=== PATIENT | female | born 2000 | race Hispanic/Latino ===

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

== ENCOUNTER 2019-06-20 16:53 | Emergency (ER) | payer MEDICAID, SELFPAY ==
[2019-06-20 17:25] LABS: #Basophils 0.1 thou/uL (0.0-0.2); #Eosinphils 0.1 thou/uL (0.0-0.7); #Lymphocytes 2.1 thou/uL (1.20-3.40); #Monocytes 0.4 thou/uL (0.11-0.59); #Neutrophils 8.1 thou/uL (1.40-6.50); %Basophils 0.8 % (0.0-1.0); %Eosinophils 0.6 % (0.0-10.0); %Lymphocytes 19.7 % (28.0-48.0); %Monocytes 4.1 % (0.0-4.0); %Neutrophils 74.8 % (31.0-61.0); Hemoglobin 12.8 g/dL (12.0-16.0); Mean Corpuscular HGB CONC 33.8 g/dL (32.0-36.0); Mean Corpuscular Hemoglobin 29.5 pg (25.0-35.0); Mean Corpuscular Volume 87.4 fL (78.0-98.0); Mean Platelet Volume 10.8 fL (7.4-10.4); Platelet Count 175 thou/uL (130-400); RBC Distribution Width 11.5 % (11.5-14.5); Red Blood Cell (RBC) Count 4.33 mill/uL (4.00-5.20); White Blood Cell (WBC) Count 10.9 thou/uL (4.8-10.8)
[2019-06-20 17:43] LABS: Anion Gap 10 mmol/L (10-20); BUN (Urea Nitrogen) 5 mg/dL (8.4-21.0); Calc. Creatinine Clearance 0 mL/min (70-130); Carbon Dioxide 24 mmol/L (22-29); Chloride 104 mmol/L (98-107); Estimated GFR-MDRD Greater than 90; Glucose 114 mg/dL (70-105); Potassium 3.4 mmol/L (3.5-5.1); Sodium 135 mmol/L (136-145)
--- NOTE | 2019-06-20 18:22 | ULT ---
ULTRASOUND PELVIC ULTRASOUND TRANSVAGINAL DOPPLER DUPLEX: DATE: 06/20/2019 HISTORY: 18-year-old female with first trimester vaginal bleeding TECHNIQUE: Transabdominal transducer and endovaginal transducer used to visualize intrapelvic contents with miller scale, color-flow, and spectral analysis. FINDINGS: There is an intrauterine gestational sac containing a pole. [place]-rump length is 2.1 cm: 8 weeks 5 days gestational age. No heart activity detected. Broad, thin hypoechoic stripes around the gestational sac could represent a small amount of subchorio huey hemorrhage. No free fluid in the cul-de-sac. Bilateral ovaries not visualized. IMPRESSION: First trimester intrauterine demise
== END 2019-06-20 18:35 | disposition home or self-care (01) ==
LOC: ERS 16:53
DX: O20.0 Threatened abortion (principal); Z3A.01 Less than 8 weeks gestation of pregnancy
CPT/HCPCS: 36415; 76856; 80048; 84702; 85025; 86900; 86901

== ENCOUNTER 2019-06-22 16:15 | Emergency (ER) | payer MEDICAID | END 2019-06-22 18:42 | disposition home or self-care (01) | LOC: ERS 16:15 | DX: O03.4 Incomplete spontaneous abortion without complication (principal) | CPT/HCPCS: 36415; 84702; 99284 ==

== ENCOUNTER 2019-06-26 01:28 | Emergency (ER) | payer MEDICAID ==
[2019-06-26 01:57] LABS: #Basophils 0.1 thou/uL (0.0-0.2); #Eosinphils 0.1 thou/uL (0.0-0.7); #Lymphocytes 3.4 thou/uL (1.20-3.40); #Monocytes 0.7 thou/uL (0.11-0.59); #Neutrophils 8.7 thou/uL (1.40-6.50); %Basophils 0.8 % (0.0-1.0); %Lymphocytes 26.3 % (28.0-48.0); %Monocytes 4.9 % (0.0-4.0); %Neutrophils 66.9 % (31.0-61.0); Hemoglobin 11.9 g/dL (12.0-16.0); Mean Corpuscular HGB CONC 34.5 g/dL (32.0-36.0); Mean Corpuscular Hemoglobin 30.5 pg (25.0-35.0); Mean Corpuscular Volume 88.5 fL (78.0-98.0); Mean Platelet Volume 10.8 fL (7.4-10.4); Platelet Count 161 thou/uL (130-400); RBC Distribution Width 11.5 % (11.5-14.5); Red Blood Cell (RBC) Count 3.89 mill/uL (4.00-5.20); White Blood Cell (WBC) Count 13.1 thou/uL (4.8-10.8)
== END 2019-06-26 02:37 | disposition home or self-care (01) ==
LOC: ERS 01:28
DX: O03.4 Incomplete spontaneous abortion without complication (principal)
CPT/HCPCS: 36415; 85025; 88305; 99284

== ENCOUNTER 2019-10-25 21:50 | Emergency (ER) | payer OTHER ==
[2019-10-25 22:19] LABS: #Basophils 0.1 thou/uL (0.0-0.2); #Eosinphils 0.1 thou/uL (0.0-0.7); #Monocytes 0.8 thou/uL (0.11-0.59); #Neutrophils 5.4 thou/uL (1.40-6.50); %Lymphocytes 23.8 % (28.0-48.0); %Monocytes 9.9 % (0.0-4.0); %Neutrophils 64.2 % (31.0-61.0); Hemoglobin 11.9 g/dL (12.0-16.0); Mean Corpuscular HGB CONC 34.6 g/dL (32.0-36.0); Mean Corpuscular Hemoglobin 29.1 pg (25.0-35.0); Mean Corpuscular Volume 84.2 fL (78.0-98.0); Mean Platelet Volume 10.9 fL (7.4-10.4); Platelet Count 163 thou/uL (130-400); RBC Distribution Width 11.7 % (11.5-14.5); Red Blood Cell (RBC) Count 4.08 mill/uL (4.00-5.20); White Blood Cell (WBC) Count 8.4 thou/uL (4.8-10.8)
[2019-10-25 22:40] LABS: ALT (SGPT) 14 U/L (8-55); AST (SGOT) 15 U/L (5-30); Albumin 4.4 g/dL (3.5-5.0); Alkaline Phosphatase 61 U/L (40-100); Anion Gap 11 mmol/L (10-20); BUN (Urea Nitrogen) 8 mg/dL (8.4-21.0); Bilirubin, Total 0.2 mg/dL (0.2-1.2); Calc. Creatinine Clearance 0 mL/min (70-130); Calcium 8.9 mg/dL (7.8-10.44); Carbon Dioxide 24 mmol/L (22-29); Chloride 105 mmol/L (98-107); Estimated GFR-MDRD Greater than 90; Globulin 2.9 g/dL (2.4-3.5); Glucose 93 mg/dL (70-105); Potassium 3.6 mmol/L (3.5-5.1); Protein, Total 7.3 g/dL (6.0-8.3); Sodium 136 mmol/L (136-145)
--- NOTE | 2019-10-25 23:01 | ULT ---
TRANSABDOMINAL AND TRANSVAGINAL PELVIC ULTRASOUND WITH GRAYSCALE, COLOR-FLOW AND SPECTRAL DOPPLER DIANDRA GING: HISTORY:Pelvic pain, no vaginal bleeding FINDINGS: Uterus: 10 x 5.6 x 6cm Right ovary: 3.6 x 1.9 x 2.5cm Left ovary: 3.5 x 2 x 2 cm A single live intrauterine gestation is seen with measurements corresponding to an estimated gestatio nal age of 6 weeks 2 days and HANNY at 06/17/2020. The crown-rump length measures 0.35 cm, gestational sac diameter 1.66 cm and yolk sac diameter 0.48 cm. The heart rate measures 111 bpm. Flow is demonstrated to both ovaries. No adnexal mass or free fluid in the cul-de-sac is identified. IMPRESSION: Single live IUP of 6 weeks 2 days estimated gestational age and HANNY at 06/17/2020
[2019-10-25 23:40] LABS: Bilirubin Negative (Negative); Blood, Urine Negative (Negative); Clarity Clear (Clear); Glucose, Urine (Dipstick) Normal (Negative); Ketone, Urine Negative (Negative); Leukocyte 250 Leu/uL (Negative); Nitrite Negative (Negative); Protein, Urine (Dipstick) Negative (Neg-Trace); RBC/HPF 0-3 HPF (0-3); Specific Gravity, Urine 1.006 (1.002-1.036); Urobilinogen Normal mg/dL (Less than 2); pH, Urine 7.5 (5.0-9.0)
[2019-10-25 23:42] LABS: Bacteria/HPF 1+ HPF (None Seen)
== END 2019-10-25 23:58 | disposition home or self-care (01) ==
LOC: ERS 21:50
DX: O20.0 Threatened abortion (principal); Z3A.13 13 weeks gestation of pregnancy
CPT/HCPCS: 76856; 80053; 81003; 81015; 84702; 85025; 86900; 86901; 93976

== ENCOUNTER 2019-10-27 15:02 | Emergency (ER) | payer OTHER ==
[2019-10-27] MEDS ORDERED: cefTRIAXone\\ROCEPHIN 1 GM VIAL ONE (15:52)
[2019-10-27] MEDS ORDERED: Lidocaine 1% PF 5 ML VIAL ONE (15:52)
== END 2019-10-27 17:11 | disposition home or self-care (01) ==
LOC: ERS 15:02
DX: O20.0 Threatened abortion (principal); Z3A.01 Less than 8 weeks gestation of pregnancy
CPT/HCPCS: 36415; 84702; 96372; 99284; J0696

== ENCOUNTER 2020-01-25 09:30 | Outpatient (CLI) | payer OTHER ==
--- NOTE | 2020-01-25 12:22 | ULT ---
OB ULTRASOUND: Date: 01/25/2020 HISTORY: anatomy. FINDINGS: A single, live intrauterine gestation is seen, with measurements corresponding to an estimated gestat ional age of 19 weeks 0 days, and HANNY at 06/20/2020. The estimated weight measures 258 gm, or 9 oz. (15% by Hadlock criteria). Biometry: BPD; 4.39 cm, 19 weeks 2 days HC: 16.10 cm, 19 weeks 0 days AC: 13.09 cm, 18 weeks 5 days FL: 2.19 cm, 19 weeks 0 days The heart rate measures 130 beats/minute. LYRIC measures 8.88 cm. Placenta is posterior fundal without placenta previa. Cervical length measures 4.8 cm. A 3 vessel cord, cord insertion, kidneys, bladder, stomach, 4 chamber heart, lateral ventricles , cerebellum, spine, lips/nose, upper/lower extremities are visualized. The spine is limited due to p ositioning of the fetus. No definite anomalies are, however, noted. IMPRESSION: Single, live intrauterine of 19 weeks 0 days estimated gestational age and HANNY at . POS: MATT
== END 2020-01-25 09:31 | disposition home or self-care (01) ==
LOC: BICULT 09:30
PROVIDERS: ATTEND Nurse Practitioner
DX: Z34.02 Encounter for supervision of normal first pregnancy, second trimester (principal); Z3A.19 19 weeks gestation of pregnancy
CPT/HCPCS: 76805

== ENCOUNTER 2020-04-23 15:39 | Day surgery (SDC) | payer OTHER ==
[2020-04-23 16:03] VITALS: BMI 20.5
[2020-04-23] MEDS ORDERED: hydrALAZINE 20 MG/ML VIAL SLOW IVP PRN (16:20)
[2020-04-24] MEDS ORDERED: FLU VACC QS2020-21(6MOS UP)/PF 60 MCG/0.5 ML SYRINGE IM ONE (09:00)
== END 2020-04-23 16:50 | disposition home or self-care (01) ==
LOC: L&D/OP 15:39
PROVIDERS: ATTEND Family Medicine
DX: O99.891 Other specified diseases and conditions complicating pregnancy (principal); M54.5 Low back pain; O09.293 Supervision of pregnancy with other poor reproductive or obstetric history, third trimester; Z3A.32 32 weeks gestation of pregnancy
CPT/HCPCS: 99283

== ENCOUNTER 2021-02-06 21:15 | Emergency (ER) | payer OTHER ==
[2021-02-06] MEDS ORDERED: Acetaminophen 500 MG TAB ONE (21:30)
== END 2021-02-06 22:05 | disposition home or self-care (01) ==
LOC: ERS 21:15
DX: F41.9 Anxiety disorder, unspecified (principal); F43.0 Acute stress reaction
CPT/HCPCS: 99284

== ENCOUNTER 2021-04-10 21:15 | Emergency (ER) | payer OTHER | END 2021-04-10 22:18 | disposition left against medical advice (07) | LOC: ERS 21:15 | DX: Z53.21 Procedure and treatment not carried out due to patient leaving prior to being seen by health care provider (principal) ==